=== PATIENT | female | born 1980 | race Caucasian/White ===

== ENCOUNTER 2017-12-28 08:10 | Inpatient (IN) | payer MEDICAID, OTHER ==
[~2017-12-28] VITALS: Ht 157.5 cm; Wt 54.6 kg
[~2017-12-28 08:10] MED LIST: ASEN10TA8 SL
[2017-12-28 10:37] LABS: BASOPHILS % (AUTO) 0.7 % (0.0-2.0); EOSINOPHILS % (AUTO) 2.4 % (1.0-6.0); HEMATOCRIT 37.7 % (36-46); HEMOGLOBIN 13.2 g/dL (12.0-16.0); LYMPHOCYTES # (AUTO) 1.4 K/uL (1.0-4.8); LYMPHOCYTES % (AUTO) 36.2 % (22.0-44.0); MEAN CORPUSCULAR HEMOGLOBIN 32.4 pg (26.0-34.0); MEAN CORPUSCULAR VOLUME 92 fL (80-100); MONOCYTES # (AUTO) 0.4 K/uL (0.1-1.0); MONOCYTES % (AUTO) 11.2 % (2.0-9.0); NEUTROPHILS % (AUTO) 49.5 % (40.0-70.0); PLATELET COUNT (AUTO) 192 K/uL (150-450); RED BLOOD CELL COUNT(AUTO) 4.08 MIL/uL (4.00-5.20); RED CELL DISTRIBUTION WIDTH 13.9 % (11.5-14.5)
[2017-12-28 10:52] LABS: ALANINE AMINOTRANSFERASE 69 U/L (12-78); ALBUMIN 3.8 g/dL (3.4-5.0); ALKALINE PHOSPHATASE 77 U/L (46-116); ASPARTATE AMINOTRANSFERASE 42 U/L (15-37); BILIRUBIN,TOTAL 0.6 mg/dL (0.1-1.0); CALCIUM, TOTAL 8.3 mg/dL (8.8-10.5); CARBON DIOXIDE 26 mmol/L (22-29); CREATININE 0.73 mg/dL (0.60-1.30); GLOMERULAR FILTR. RATE CALC > 60 mL/min (>60); GLUCOSE,RANDOM 87 mg/dL (70-110); TOTAL PROTEIN, SERUM 6.8 g/dL (6.4-8.2); UREA NITROGEN, BLOOD 15 mg/dL (7-18)
[2017-12-28 10:56] LABS: ANION GAP 11 mmol/L (8-16); CHLORIDE 102 mmol/L (98-107); POTASSIUM 3.1 mmol/L (3.5-5.1); SODIUM SERUM 139 mmol/L (136-145)
[2017-12-28] MEDS ORDERED: POTASSIUM CHLORIDE 20 MEQ ER TABLET PO ONE (15:30)
[2017-12-28 16:38] LABS: CHOL/HDL RATIO 2.2 (3.9-5.7); CHOLESTEROL 139 mg/dL (131-200); HDL CHOLESTEROL 62 mg/dL (40-60); LDL CHOL (CALC.) 69 mg/dL (0-130); TRIGLYCERIDES 40 mg/dL (15-150)
[2017-12-28 17:09] LABS: AMPHET/METH SCREEN,URINE NEGATIVE (NEGATIVE); BARBITURATE SCREEN, URINE NEGATIVE (NEGATIVE); BENZODIAZEPINES SCREEN,URINE NEGATIVE (NEGATIVE); CANNABINOID SCREEN,URINE NEGATIVE (NEGATIVE); COCAINE SCREEN,URINE NEGATIVE (NEGATIVE); METHADONE SCREEN, URINE NEGATIVE (NEGATIVE); OPIATE SCREEN,URINE NEGATIVE (NEGATIVE)
[2017-12-28 17:10] LABS: PHENCYCLIDINE SCREEN,URINE NEGATIVE (NEGATIVE)
[2017-12-28 18:10] VITALS: BP 95/56
[2017-12-29 08:41] VITALS: BP 94/66
[2017-12-29 17:05] VITALS: BP 95/58
[2017-12-29] MEDS ORDERED: IBUPROFEN 400 MG TABLET PO PRN (21:30)
[2017-12-29] MEDS ORDERED: ACETAMINOPHEN 325 MG TABLET PO PRN (21:30)
[2017-12-29] MEDS ORDERED: POTASSIUM CHLORIDE 10 MEQ ER TABLET PO ONE (21:30)
[2017-12-30 05:51] VITALS: BP 144/58
[2017-12-30 09:09] VITALS: BP 116/53
[2017-12-30] MEDS: ASENAPINE 10 MG SUBLINGUAL TABLET SL SCH (09:15)
[2017-12-30 16:15] VITALS: BP 104/61
[2017-12-31 03:00] VITALS: BP 116/85
[2017-12-31] MEDS: ASENAPINE 10 MG SUBLINGUAL TABLET SL SCH (08:28)
[2017-12-31 09:00] VITALS: BP 129/78
[2017-12-31 17:00] VITALS: BP 98/58
[2018-01-01 01:00] VITALS: BP 120/66
[2018-01-01 09:00] VITALS: BP 94/45
[2018-01-01] MEDS: ASENAPINE 10 MG SUBLINGUAL TABLET SL SCH (09:51)
[2018-01-01 21:27] VITALS: BP 117/65
[2018-01-02 01:23] VITALS: BP 95/53
[2018-01-02 09:15] VITALS: BP 114/60
[2018-01-02] MEDS: ASENAPINE 10 MG SUBLINGUAL TABLET SL SCH ×2 (11:01→18:00)
[2018-01-02] MEDS: LORazepam 2 MG TABLET PO PRN (11:01)
[2018-01-03 08:00] VITALS: BP 109/62
[2018-01-03] MEDS: LORazepam 2 MG TABLET PO PRN (09:51)
[2018-01-03] MEDS: ASENAPINE 10 MG SUBLINGUAL TABLET SL SCH ×3 (09:51→17:00)
[2018-01-03 18:12] VITALS: BP 109/60
[2018-01-04 08:15] VITALS: BP 99/78
[2018-01-04] MEDS: ASENAPINE 10 MG SUBLINGUAL TABLET SL SCH ×2 (09:03→16:46)
[2018-01-04] MEDS: LORazepam 2 MG TABLET PO PRN (10:29)
[2018-01-04 17:35] VITALS: BP 117/73
[2018-01-05] MEDS: ASENAPINE 10 MG SUBLINGUAL TABLET SL SCH ×2 (09:00→17:00)
[2018-01-05 13:02] VITALS: BP 105/63
[2018-01-06] MEDS: ASENAPINE 10 MG SUBLINGUAL TABLET SL SCH ×2 (09:00→18:00)
[2018-01-06 09:36] VITALS: BP 93/59
[2018-01-06 16:35] VITALS: BP 105/54
[2018-01-07] MEDS: ASENAPINE 10 MG SUBLINGUAL TABLET SL SCH ×2 (09:24→09:28)
[2018-01-07] MEDS: VALPROIC ACID 250 MG/5 ML SYRUP UDCUP PO SCH ×2 (11:30→17:36)
[2018-01-07] MEDS: RisperiDONE CONC 2 MG/2 ML SOLUTION ORAL.SYG PO SCH ×2 (11:30→17:36)
[2018-01-07 17:00] VITALS: BP 98/59
[2018-01-07] MEDS: LORazepam 2 MG TABLET PO PRN (20:00)
[2018-01-07] MEDS: OLANZapine 5 MG RAPDIS TABLET PO PRN (20:00)
[2018-01-07] MEDS: ZOLPIDEM TARTRATE 10 MG TABLET PO PRN (21:15)
[2018-01-08] MEDS: RisperiDONE CONC 2 MG/2 ML SOLUTION ORAL.SYG PO SCH ×2 (10:38→17:45)
[2018-01-08] MEDS: VALPROIC ACID 250 MG/5 ML SYRUP UDCUP PO SCH ×2 (10:39→17:45)
[2018-01-09] MEDS: VALPROIC ACID 250 MG/5 ML SYRUP UDCUP PO SCH ×2 (08:30→16:45)
[2018-01-09] MEDS: RisperiDONE CONC 2 MG/2 ML SOLUTION ORAL.SYG PO SCH ×2 (08:30→16:45)
[2018-01-09 09:00] VITALS: BP 106/62
[2018-01-09] MEDS: OLANZapine 5 MG RAPDIS TABLET PO PRN (15:45)
[2018-01-09] MEDS: LORazepam 2 MG TABLET PO PRN (15:46)
[2018-01-10 09:00] VITALS: BP 99/53
[2018-01-10] MEDS: RisperiDONE CONC 2 MG/2 ML SOLUTION ORAL.SYG PO SCH ×2 (09:20→17:38)
[2018-01-10] MEDS: VALPROIC ACID 250 MG/5 ML SYRUP UDCUP PO SCH ×2 (09:20→17:37)
[2018-01-10] MEDS: OLANZapine 5 MG RAPDIS TABLET PO PRN (17:38)
[2018-01-10] MEDS: LORazepam 2 MG TABLET PO PRN (17:38)
[2018-01-11] MEDS: OLANZapine 5 MG RAPDIS TABLET PO PRN ×2 (02:39→16:09)
[2018-01-11] MEDS: LORazepam 2 MG TABLET PO PRN ×2 (02:39→16:09)
[2018-01-11 08:30] VITALS: BP 90/58
[2018-01-11] MEDS: RisperiDONE CONC 2 MG/2 ML SOLUTION ORAL.SYG PO SCH ×2 (10:46→17:39)
[2018-01-11] MEDS: VALPROIC ACID 250 MG/5 ML SYRUP UDCUP PO SCH ×2 (10:47→17:39)
[2018-01-11 19:46] VITALS: BP 121/77
[2018-01-12 05:50] VITALS: BP 111/56
[2018-01-12 09:00] VITALS: BP 98/60
[2018-01-12] MEDS: VALPROIC ACID 250 MG/5 ML SYRUP UDCUP PO SCH ×2 (09:39→17:00)
[2018-01-12] MEDS: RisperiDONE CONC 2 MG/2 ML SOLUTION ORAL.SYG PO SCH ×2 (09:39→17:00)
[2018-01-12 17:00] VITALS: BP 104/70
[2018-01-12] MEDS: OLANZapine 5 MG RAPDIS TABLET PO PRN (19:27)
[2018-01-12] MEDS: LORazepam 2 MG TABLET PO PRN (19:27)
[2018-01-13 08:00] VITALS: BP 110/62
[2018-01-13] MEDS: VALPROIC ACID 250 MG/5 ML SYRUP UDCUP PO SCH ×2 (10:32→16:21)
[2018-01-13] MEDS: RisperiDONE CONC 2 MG/2 ML SOLUTION ORAL.SYG PO SCH ×2 (10:32→16:21)
[2018-01-13] MEDS: LORazepam 2 MG TABLET PO PRN (10:43)
[2018-01-13 17:08] VITALS: BP 95/68
[2018-01-14 05:55] VITALS: BP 99/65
[2018-01-14] MEDS: VALPROIC ACID 250 MG/5 ML SYRUP UDCUP PO SCH ×2 (08:11→17:14)
[2018-01-14] MEDS: RisperiDONE CONC 2 MG/2 ML SOLUTION ORAL.SYG PO SCH ×2 (08:11→17:14)
[2018-01-14 08:30] VITALS: BP 126/78
[2018-01-14] MEDS: LORazepam 2 MG TABLET PO PRN ×2 (11:27→17:40)
[2018-01-14 17:35] VITALS: BP 122/74
[2018-01-15] MEDS: VALPROIC ACID 250 MG/5 ML SYRUP UDCUP PO SCH ×2 (09:17→16:52)
[2018-01-15] MEDS: RisperiDONE CONC 2 MG/2 ML SOLUTION ORAL.SYG PO SCH ×2 (09:17→16:52)
[2018-01-15 09:38] VITALS: BP 96/73
[2018-01-15] MEDS: LORazepam 2 MG TABLET PO PRN ×2 (10:15→17:41)
[2018-01-15] MEDS: OLANZapine 5 MG RAPDIS TABLET PO PRN (10:15)
[2018-01-15 18:37] VITALS: BP 112/68
[2018-01-16] MEDS: VALPROIC ACID 250 MG/5 ML SYRUP UDCUP PO SCH ×2 (08:54→16:55)
[2018-01-16] MEDS: RisperiDONE CONC 2 MG/2 ML SOLUTION ORAL.SYG PO SCH ×2 (08:55→16:55)
[2018-01-16 09:00] VITALS: BP 100/62
[2018-01-16] MEDS: LORazepam 2 MG TABLET PO PRN ×2 (09:02→18:39)
[2018-01-16 17:00] VITALS: BP 137/70
[2018-01-17] MEDS: VALPROIC ACID 250 MG/5 ML SYRUP UDCUP PO SCH ×2 (08:57→17:58)
[2018-01-17] MEDS: RisperiDONE CONC 2 MG/2 ML SOLUTION ORAL.SYG PO SCH ×2 (08:57→17:58)
[2018-01-17 09:18] VITALS: BP 100/68
[2018-01-17] MEDS: LORazepam 2 MG TABLET PO PRN ×2 (09:22→18:32)
[2018-01-17 22:28] VITALS: BP 79/48
[2018-01-18] MEDS: VALPROIC ACID 250 MG/5 ML SYRUP UDCUP PO SCH (08:41)
[2018-01-18] MEDS: RisperiDONE CONC 2 MG/2 ML SOLUTION ORAL.SYG PO SCH (08:41)
[2018-01-18] MEDS: LORazepam 2 MG TABLET PO PRN ×2 (09:35→16:38)
[2018-01-18 09:54] VITALS: BP 101/49
[2018-01-18 17:53] VITALS: BP 102/64
[2018-01-18] MEDS: DIVALPROEX SODIUM 500 MG DR TABLET PO SCH (20:10)
[2018-01-18] MEDS: RisperiDONE 3 MG TABLET PO SCH (20:11)
[2018-01-19] MEDS: RisperiDONE 3 MG TABLET PO SCH ×2 (09:17→20:02)
[2018-01-19] MEDS: DIVALPROEX SODIUM 500 MG DR TABLET PO SCH ×2 (09:17→20:02)
[2018-01-19] MEDS: LORazepam 2 MG TABLET PO PRN ×2 (09:20→20:04)
[2018-01-19 10:20] VITALS: BP 107/50
[2018-01-19 17:45] VITALS: BP 101/58
[2018-01-20] MEDS: RisperiDONE 3 MG TABLET PO SCH ×2 (09:31→20:33)
[2018-01-20] MEDS: DIVALPROEX SODIUM 500 MG DR TABLET PO SCH ×2 (09:31→20:34)
[2018-01-20] MEDS: LORazepam 2 MG TABLET PO PRN ×3 (09:35→23:45)
[2018-01-20 10:09] VITALS: BP 93/52
[2018-01-20 22:15] VITALS: BP 96/55
[2018-01-20] MEDS: ZOLPIDEM TARTRATE 10 MG TABLET PO PRN (23:39)
[2018-01-21 00:10] VITALS: BP 104/85
[2018-01-21] MEDS: OLANZapine 5 MG RAPDIS TABLET PO PRN ×2 (00:18→23:51)
[2018-01-21 08:55] VITALS: BP 137/62
[2018-01-21] MEDS: RisperiDONE 3 MG TABLET PO SCH ×2 (09:07→20:12)
[2018-01-21] MEDS: DIVALPROEX SODIUM 500 MG DR TABLET PO SCH ×2 (09:07→20:12)
[2018-01-21 17:03] VITALS: BP 131/80
[2018-01-21] MEDS: LORazepam 2 MG TABLET PO PRN (23:42)
[2018-01-22 08:41] VITALS: BP 93/54
[2018-01-22] MEDS: DIVALPROEX SODIUM 500 MG DR TABLET PO SCH ×2 (10:07→20:08)
[2018-01-22] MEDS: RisperiDONE 3 MG TABLET PO SCH ×2 (10:07→20:08)
[2018-01-22] MEDS: LORazepam 2 MG TABLET PO PRN (20:58)
[2018-01-22 21:09] VITALS: BP 135/78
[2018-01-23] MEDS: LORazepam 2 MG TABLET PO PRN (06:20)
[2018-01-23 09:26] VITALS: BP 91/59
[2018-01-23] MEDS: RisperiDONE 3 MG TABLET PO SCH ×2 (10:50→20:49)
[2018-01-23] MEDS: DIVALPROEX SODIUM 500 MG DR TABLET PO SCH ×2 (10:50→20:49)
[2018-01-23] MEDS: OLANZapine 5 MG RAPDIS TABLET PO PRN (16:02)
[2018-01-23 19:55] VITALS: BP 90/53
[2018-01-24 08:43] VITALS: BP 95/55
[2018-01-24 09:53] VITALS: BP 105/74
[2018-01-24] MEDS: RisperiDONE 3 MG TABLET PO SCH ×2 (09:56→20:28)
[2018-01-24] MEDS: DIVALPROEX SODIUM 500 MG DR TABLET PO SCH ×2 (09:56→20:28)
[2018-01-24] MEDS: LORazepam 2 MG TABLET PO PRN ×2 (09:56→20:28)
[2018-01-24 16:47] VITALS: BP 110/68
[2018-01-25 08:05] VITALS: BP 103/66
[2018-01-25] MEDS: DIVALPROEX SODIUM 500 MG DR TABLET PO SCH ×2 (08:27→20:11)
[2018-01-25] MEDS: LORazepam 2 MG TABLET PO PRN ×2 (08:27→18:01)
[2018-01-25] MEDS: RisperiDONE 3 MG TABLET PO SCH ×2 (08:27→20:11)
[2018-01-25 18:44] VITALS: BP 110/69
[2018-01-25] MEDS: ZOLPIDEM TARTRATE 10 MG TABLET PO PRN (20:36)
[2018-01-26 01:00] VITALS: BP 89/66
[2018-01-26] MEDS: LORazepam 2 MG TABLET PO PRN ×3 (01:49→22:58)
[2018-01-26] MEDS: DIVALPROEX SODIUM 500 MG DR TABLET PO SCH ×2 (08:08→20:23)
[2018-01-26] MEDS: RisperiDONE 3 MG TABLET PO SCH ×2 (08:08→20:23)
[2018-01-26 09:22] VITALS: BP 92/66
[2018-01-27 00:20] VITALS: BP 103/64
[2018-01-27] MEDS: OLANZapine 5 MG RAPDIS TABLET PO PRN (00:21)
[2018-01-27 08:42] VITALS: BP 123/87
[2018-01-27] MEDS: RisperiDONE 3 MG TABLET PO SCH ×2 (10:58→21:33)
[2018-01-27] MEDS: DIVALPROEX SODIUM 500 MG DR TABLET PO SCH ×2 (10:59→21:33)
[2018-01-27 16:45] VITALS: BP 118/70
[2018-01-27] MEDS: LORazepam 2 MG TABLET PO PRN (22:23)
[2018-01-28] MEDS: RisperiDONE 3 MG TABLET PO SCH ×2 (10:19→21:47)
[2018-01-28] MEDS: DIVALPROEX SODIUM 500 MG DR TABLET PO SCH ×2 (10:19→21:47)
[2018-01-28 10:48] VITALS: BP 101/54
[2018-01-28] MEDS: LORazepam 2 MG TABLET PO PRN ×2 (10:49→21:47)
[2018-01-28] MEDS: OLANZapine 5 MG RAPDIS TABLET PO PRN (10:50)
[2018-01-28 16:30] VITALS: BP 100/57
[2018-01-29 00:45] VITALS: BP 95/68
[2018-01-29] MEDS: RisperiDONE 3 MG TABLET PO SCH ×2 (09:13→20:22)
[2018-01-29] MEDS: DIVALPROEX SODIUM 500 MG DR TABLET PO SCH ×2 (09:14→20:22)
[2018-01-29 09:15] VITALS: BP 122/53
[2018-01-29] MEDS: LORazepam 2 MG TABLET PO PRN (09:38)
[2018-01-29] MEDS: OLANZapine 5 MG RAPDIS TABLET PO PRN (09:38)
[2018-01-29 10:23] LABS: APPEARANCE,URINE CLEAR (CLEAR); BILIRUBIN,URINE NEGATIVE (NEGATIVE); GLUCOSE, URINE (UA) NEGATIVE (NEGATIVE); KETONES,URINE NEGATIVE (NEGATIVE); LEUKOCYTE ESTERASE ,URINE NEGATIVE (NEGATIVE); NITRATE,URINE NEGATIVE (NEGATIVE); OCCULT BLOOD,URINE NEGATIVE (NEGATIVE); PROTEIN,URINE NEGATIVE (NEGATIVE); UROBILINOGEN,URINE 0.2 mg/dL (<=1.0)
[2018-01-29 19:47] VITALS: BP 120/74
[2018-01-30 01:06] VITALS: BP 101/61
[2018-01-30 08:05] VITALS: BP 109/76
[2018-01-30] MEDS: DIVALPROEX SODIUM 500 MG DR TABLET PO SCH (08:40)
[2018-01-30] MEDS: OLANZapine 5 MG RAPDIS TABLET PO PRN (08:40)
[2018-01-30] MEDS: LORazepam 2 MG TABLET PO PRN ×2 (08:40→20:17)
[2018-01-30] MEDS: RisperiDONE 3 MG TABLET PO SCH (08:40)
[2018-01-30 16:45] VITALS: BP 120/80
[2018-01-30] MEDS: RisperiDONE CONC 3 MG/3 ML SOLUTION ORAL.SYG PO SCH (20:19)
[2018-01-30] MEDS: VALPROIC ACID 250 MG/5 ML SYRUP UDCUP PO SCH (20:19)
[2018-01-31] MEDS: RisperiDONE CONC 3 MG/3 ML SOLUTION ORAL.SYG PO SCH ×2 (08:27→20:48)
[2018-01-31] MEDS: VALPROIC ACID 250 MG/5 ML SYRUP UDCUP PO SCH ×2 (08:27→20:48)
[2018-01-31] MEDS: LORazepam 2 MG TABLET PO PRN ×2 (08:38→21:03)
[2018-01-31 10:21] VITALS: BP 105/68
[2018-01-31 22:11] VITALS: BP 86/50
[2018-02-01] MEDS: RisperiDONE CONC 3 MG/3 ML SOLUTION ORAL.SYG PO SCH ×2 (08:44→21:06)
[2018-02-01] MEDS: LORazepam 2 MG TABLET PO PRN (08:45)
[2018-02-01] MEDS: VALPROIC ACID 250 MG/5 ML SYRUP UDCUP PO SCH ×2 (08:45→21:05)
[2018-02-01] MEDS: OLANZapine 5 MG RAPDIS TABLET PO PRN (08:45)
[2018-02-01 10:35] VITALS: BP 144/91
[2018-02-01 18:36] VITALS: BP 102/70
[2018-02-02 04:32] VITALS: BP 102/62
[2018-02-02] MEDS: RisperiDONE CONC 3 MG/3 ML SOLUTION ORAL.SYG PO SCH ×2 (07:46→20:01)
[2018-02-02] MEDS: LORazepam 2 MG TABLET PO PRN (07:46)
[2018-02-02] MEDS: OLANZapine 5 MG RAPDIS TABLET PO PRN (07:46)
[2018-02-02] MEDS: VALPROIC ACID 250 MG/5 ML SYRUP UDCUP PO SCH ×2 (07:46→20:02)
[2018-02-02 10:26] VITALS: BP 92/59
[2018-02-02 18:27] VITALS: BP 90/51
[2018-02-03 05:51] VITALS: BP 110/84
[2018-02-03 08:05] VITALS: BP 110/74
[2018-02-03] MEDS: VALPROIC ACID 250 MG/5 ML SYRUP UDCUP PO SCH ×2 (08:14→20:45)
[2018-02-03] MEDS: OLANZapine 5 MG RAPDIS TABLET PO PRN (08:14)
[2018-02-03] MEDS: LORazepam 2 MG TABLET PO PRN (08:14)
[2018-02-03] MEDS: RisperiDONE CONC 3 MG/3 ML SOLUTION ORAL.SYG PO SCH ×2 (08:16→20:46)
[2018-02-03 20:06] VITALS: BP 100/76
[2018-02-04 02:56] VITALS: BP 116/70
[2018-02-04] MEDS: VALPROIC ACID 250 MG/5 ML SYRUP UDCUP PO SCH ×2 (09:22→21:50)
[2018-02-04] MEDS: RisperiDONE CONC 3 MG/3 ML SOLUTION ORAL.SYG PO SCH ×2 (09:22→21:50)
[2018-02-04] MEDS: LORazepam 2 MG TABLET PO PRN ×2 (09:25→22:35)
[2018-02-04 12:27] VITALS: BP 104/62
[2018-02-04 16:30] VITALS: BP 110/58
[2018-02-05] MEDS: LORazepam 2 MG TABLET PO PRN ×2 (08:21→22:15)
[2018-02-05] MEDS: RisperiDONE CONC 3 MG/3 ML SOLUTION ORAL.SYG PO SCH ×2 (08:21→22:06)
[2018-02-05] MEDS: VALPROIC ACID 250 MG/5 ML SYRUP UDCUP PO SCH ×2 (08:21→22:08)
[2018-02-05 08:43] VITALS: BP 99/70
[2018-02-05 18:00] VITALS: BP 106/58
[2018-02-06 03:38] VITALS: BP 99/58
[2018-02-06] MEDS: VALPROIC ACID 250 MG/5 ML SYRUP UDCUP PO SCH ×2 (08:20→20:38)
[2018-02-06] MEDS: RisperiDONE CONC 3 MG/3 ML SOLUTION ORAL.SYG PO SCH ×2 (08:20→20:38)
[2018-02-06] MEDS: LORazepam 2 MG TABLET PO PRN ×2 (08:22→21:47)
[2018-02-06 09:13] VITALS: BP 102/68
[2018-02-06 17:47] VITALS: BP 105/55
[2018-02-07 08:54] VITALS: BP 108/55
[2018-02-07] MEDS: LORazepam 2 MG TABLET PO PRN (09:21)
[2018-02-07] MEDS: RisperiDONE CONC 3 MG/3 ML SOLUTION ORAL.SYG PO SCH (09:23)
[2018-02-07] MEDS: VALPROIC ACID 250 MG/5 ML SYRUP UDCUP PO SCH (09:23)
[2018-02-07] MEDS: OLANZapine 5 MG RAPDIS TABLET PO PRN (10:10)
[2018-02-07] MEDS ORDERED: RISP3TAB13 PO ×2 (16:16→16:23)
[2018-02-07] MEDS ORDERED: VALP250C PO ×2 (16:19→16:24)
== END 2018-02-07 17:00 | disposition home or self-care (01) | DRG 750 ==
LOC: EMS 08:11 → 3EI 17:18
PROVIDERS: ATTEND Psychiatry & Neurology Child & Adolescent Psychiatry
DX: F20.0 Paranoid schizophrenia (principal); Z91.14 Patient's other noncompliance with medication regimen; E87.6 Hypokalemia; D72.819 Decreased white blood cell count, unspecified; G47.00 Insomnia, unspecified; Z59.0 Homelessness
CPT/HCPCS: 87081; 99285; G0480

== ENCOUNTER 2018-07-01 01:30 | Inpatient (IN) | payer MEDICAID, OTHER ==
[~2018-07-01] VITALS: Ht 157.5 cm; Wt 49.9 kg
[~2018-07-01 01:30] MED LIST changes: -ASEN10TA8 SL; +RISP3TAB13 PO; +VALP250C PO
[2018-07-01] MEDS ORDERED: LORazepam 2 MG/ML VIAL IM ONE (03:30)
[2018-07-01] MEDS ORDERED: FluPHENAZine HCL 2.5 MG/ML INJ IM ONE (03:30)
[2018-07-01] MEDS ORDERED: DiphenhydrAMINE HCL 50 MG/ML VIAL IM ONE (03:30)
[2018-07-01 05:48] LABS: BASOPHILS % (AUTO) 0.4 % (0.0-2.0); EOSINOPHILS % (AUTO) 0.1 % (1.0-6.0); HEMATOCRIT 35.2 % (36-46); HEMOGLOBIN 12.2 g/dL (12.0-16.0); LYMPHOCYTES # (AUTO) 0.9 K/uL (1.0-4.8); LYMPHOCYTES % (AUTO) 13.8 % (22.0-44.0); MEAN CORPUSCULAR HEMOGLOBIN 31.6 pg (26.0-34.0); MEAN CORPUSCULAR HGB CONC 34.7 G/dL (31.0-37.0); MEAN CORPUSCULAR VOLUME 91 fL (80-100); MONOCYTES # (AUTO) 0.4 K/uL (0.1-1.0); MONOCYTES % (AUTO) 6.1 % (2.0-9.0); NEUTROPHILS # (AUTO) 5.1 K/uL (1.8-7.7); NEUTROPHILS % (AUTO) 79.6 % (40.0-70.0); PLATELET COUNT (AUTO) 162 K/uL (150-450); RED BLOOD CELL COUNT(AUTO) 3.87 MIL/uL (4.00-5.20); RED CELL DISTRIBUTION WIDTH 13.5 % (11.5-14.5)
[2018-07-01 06:16] LABS: ALANINE AMINOTRANSFERASE 29 U/L (12-78); ALBUMIN 3.6 g/dL (3.4-5.0); ALKALINE PHOSPHATASE 48 U/L (46-116); ANION GAP 6 mmol/L (8-16); ASPARTATE AMINOTRANSFERASE 22 U/L (15-37); BILIRUBIN,TOTAL 0.8 mg/dL (0.1-1.0); CALCIUM, TOTAL 8.8 mg/dL (8.8-10.5); CARBON DIOXIDE 28 mmol/L (22-29); CHLORIDE 102 mmol/L (98-107); CREATININE 0.83 mg/dL (0.60-1.30); GLOMERULAR FILTR. RATE CALC > 60 mL/min (>60); GLUCOSE,RANDOM 215 mg/dL (70-110); SODIUM SERUM 136 mmol/L (136-145); TOTAL PROTEIN, SERUM 6.6 g/dL (6.4-8.2); UREA NITROGEN, BLOOD 19 mg/dL (7-18)
[2018-07-01 07:02] LABS: HCG,QUANTITATIVE < 1 mIU/mL (0-6)
[2018-07-01] MEDS ORDERED: OLANZapine 5 MG RAPDIS TABLET PO PRN (09:45)
[2018-07-01] MEDS ORDERED: ZOLPIDEM TARTRATE 10 MG TABLET PO PRN (09:45)
[2018-07-01] MEDS ORDERED: HydrOXYzine PAMOATE 50 MG CAPSULE PO PRN (11:30)
[2018-07-01] MEDS ORDERED: MAG HYDROX/AL HYDROX/SIMETH ES 30 ML SUSPENSION UDCUP PO PRN (11:30)
[2018-07-01] MEDS ORDERED: LOPERAMIDE HCL 2 MG CAPSULE PO PRN (11:30)
[2018-07-01] MEDS ORDERED: ACETAMINOPHEN 325 MG TABLET PO PRN (11:30)
[2018-07-01] MEDS ORDERED: MAGNESIUM HYDROXIDE SUSPENSION 30 ML UDCUP PO PRN (11:30)
[2018-07-01] MEDS ORDERED: TUBERCULIN, PURIFIED PROTEIN DERIVATIVE 5 TU/0.1 ML SYG ID ONE (11:30)
[2018-07-01] MEDS ORDERED: GuaiFENesin/D-METHORPHAN [SUGAR-FREE] 200-20MG/10 ML SYRUP UDCUP PO PRN (11:30)
[2018-07-01] MEDS ORDERED: PROMETHAZINE HCL 25 MG TABLET PO PRN (11:30)
[2018-07-01 13:43] LABS: GLUCOSE,POINT OF CARE 139 MG/DL (70-110)
[2018-07-01 16:57] VITALS: BP 110/64
[2018-07-01] MEDS: THIAMINE HCL 100 MG TABLET PO SCH (17:00)
[2018-07-01] MEDS: OLANZapine 5 MG RAPDIS TABLET PO SCH (21:00)
[2018-07-01] MEDS: VALPROIC ACID 250 MG/5 ML SYRUP UDCUP PO SCH (21:00)
[2018-07-02 06:45] VITALS: BP 115/70
[2018-07-02] MEDS: LORazepam 2 MG TABLET PO PRN (06:50)
[2018-07-02 07:29] LABS: GLUCOMETER DEV NAME(LOC) BV3S 2; GLUCOSE,POINT OF CARE 97 MG/DL (70-110)
[2018-07-02 08:14] VITALS: BP 122/78
[2018-07-02] MEDS: FOLIC ACID 1 MG TABLET PO SCH (08:50)
[2018-07-02] MEDS: MULTIVITAMINS WITH MINERALS, THERAPEUTIC TABLET PO SCH (08:50)
[2018-07-02] MEDS: NALTREXONE HCL 50 MG TABLET PO SCH (08:50)
[2018-07-02] MEDS: THIAMINE HCL 100 MG TABLET PO SCH ×2 (08:50→17:09)
[2018-07-02 17:45] VITALS: BP 75/44
[2018-07-02] MEDS: VALPROIC ACID 250 MG/5 ML SYRUP UDCUP PO SCH (20:42)
[2018-07-02] MEDS: OLANZapine 5 MG RAPDIS TABLET PO SCH (20:42)
[2018-07-03] MEDS: THIAMINE HCL 100 MG TABLET PO SCH ×2 (08:59→16:23)
[2018-07-03] MEDS: NALTREXONE HCL 50 MG TABLET PO SCH (08:59)
[2018-07-03] MEDS: FOLIC ACID 1 MG TABLET PO SCH (08:59)
[2018-07-03] MEDS: MULTIVITAMINS WITH MINERALS, THERAPEUTIC TABLET PO SCH (09:00)
[2018-07-03 16:03] VITALS: BP 100/60
[2018-07-03] MEDS: VALPROIC ACID 250 MG/5 ML SYRUP UDCUP PO SCH (20:38)
[2018-07-03] MEDS: OLANZapine 10 MG RAPDIS TABLET PO SCH (20:39)
[2018-07-04 01:11] VITALS: BP 110/66
[2018-07-04] MEDS: NALTREXONE HCL 50 MG TABLET PO SCH (08:26)
[2018-07-04] MEDS: MULTIVITAMINS WITH MINERALS, THERAPEUTIC TABLET PO SCH (08:27)
[2018-07-04] MEDS: THIAMINE HCL 100 MG TABLET PO SCH ×2 (08:27→16:42)
[2018-07-04] MEDS: LORazepam 2 MG TABLET PO PRN (08:28)
[2018-07-04] MEDS: FOLIC ACID 1 MG TABLET PO SCH (08:29)
[2018-07-04 16:40] VITALS: BP 100/63
[2018-07-04] MEDS: VALPROIC ACID 250 MG/5 ML SYRUP UDCUP PO SCH (20:25)
[2018-07-04] MEDS: OLANZapine 10 MG RAPDIS TABLET PO SCH (20:25)
[2018-07-05] MEDS: NALTREXONE HCL 50 MG TABLET PO SCH (08:05)
[2018-07-05] MEDS: FOLIC ACID 1 MG TABLET PO SCH (08:05)
[2018-07-05] MEDS: MULTIVITAMINS WITH MINERALS, THERAPEUTIC TABLET PO SCH (08:05)
[2018-07-05] MEDS: LORazepam 2 MG TABLET PO PRN ×2 (08:05→16:10)
[2018-07-05] MEDS: THIAMINE HCL 100 MG TABLET PO SCH ×2 (08:05→16:11)
[2018-07-05] MEDS: OLANZapine 10 MG RAPDIS TABLET PO SCH (20:28)
[2018-07-05] MEDS: VALPROIC ACID 250 MG/5 ML SYRUP UDCUP PO SCH (20:28)
[2018-07-06 04:44] VITALS: BP 104/63
[2018-07-06] MEDS: LORazepam 2 MG TABLET PO PRN ×2 (08:40→16:24)
[2018-07-06] MEDS: NALTREXONE HCL 50 MG TABLET PO SCH (08:40)
[2018-07-06] MEDS: FOLIC ACID 1 MG TABLET PO SCH (08:40)
[2018-07-06] MEDS: MULTIVITAMINS WITH MINERALS, THERAPEUTIC TABLET PO SCH (08:41)
[2018-07-06] MEDS: THIAMINE HCL 100 MG TABLET PO SCH ×2 (08:41→16:24)
[2018-07-06] MEDS: VALPROIC ACID 250 MG/5 ML SYRUP UDCUP PO SCH (20:15)
[2018-07-06] MEDS: OLANZapine 10 MG RAPDIS TABLET PO SCH (20:15)
[2018-07-07] MEDS: LORazepam 2 MG TABLET PO PRN (08:16)
[2018-07-07] MEDS: MULTIVITAMINS WITH MINERALS, THERAPEUTIC TABLET PO SCH (08:17)
[2018-07-07] MEDS: NALTREXONE HCL 50 MG TABLET PO SCH (08:17)
[2018-07-07] MEDS: THIAMINE HCL 100 MG TABLET PO SCH ×2 (08:17→17:35)
[2018-07-07] MEDS: FOLIC ACID 1 MG TABLET PO SCH (08:17)
[2018-07-07] MEDS: VALPROIC ACID 250 MG/5 ML SYRUP UDCUP PO SCH (21:16)
[2018-07-07] MEDS: OLANZapine 10 MG RAPDIS TABLET PO SCH (21:16)
[2018-07-08 05:39] VITALS: BP 106/66
[2018-07-08 08:16] VITALS: BP 122/74
[2018-07-08] MEDS: MULTIVITAMINS WITH MINERALS, THERAPEUTIC TABLET PO SCH (08:44)
[2018-07-08] MEDS: NALTREXONE HCL 50 MG TABLET PO SCH (08:44)
[2018-07-08] MEDS: THIAMINE HCL 100 MG TABLET PO SCH ×2 (08:44→17:05)
[2018-07-08] MEDS: FOLIC ACID 1 MG TABLET PO SCH (08:44)
[2018-07-08] MEDS: LORazepam 2 MG TABLET PO PRN (08:45)
[2018-07-08 16:38] VITALS: BP 100/64
[2018-07-08] MEDS: OLANZapine 10 MG RAPDIS TABLET PO SCH (20:31)
[2018-07-08] MEDS: VALPROIC ACID 250 MG/5 ML SYRUP UDCUP PO SCH (20:32)
[2018-07-09 05:02] VITALS: BP 100/70
[2018-07-09] MEDS: NALTREXONE HCL 50 MG TABLET PO SCH (08:43)
[2018-07-09] MEDS: FOLIC ACID 1 MG TABLET PO SCH (08:43)
[2018-07-09] MEDS: THIAMINE HCL 100 MG TABLET PO SCH ×2 (08:43→17:08)
[2018-07-09] MEDS: MULTIVITAMINS WITH MINERALS, THERAPEUTIC TABLET PO SCH (08:43)
[2018-07-09] MEDS ORDERED: VALPROIC ACID 250 MG/5 ML SYRUP UDCUP PO SCH (09:00)
[2018-07-09 17:32] VITALS: BP 109/92
[2018-07-09] MEDS: VALPROIC ACID 250 MG/5 ML SYRUP UDCUP PO SCH (20:16)
[2018-07-09] MEDS: OLANZapine 10 MG RAPDIS TABLET PO SCH (20:17)
[2018-07-10 06:59] VITALS: BP 115/80
[2018-07-10 08:08] VITALS: BP 100/62
[2018-07-10] MEDS: NALTREXONE HCL 50 MG TABLET PO SCH (09:02)
[2018-07-10] MEDS: FOLIC ACID 1 MG TABLET PO SCH (09:02)
[2018-07-10] MEDS: THIAMINE HCL 100 MG TABLET PO SCH ×2 (09:02→16:52)
[2018-07-10] MEDS: MULTIVITAMINS WITH MINERALS, THERAPEUTIC TABLET PO SCH (09:02)
[2018-07-10] MEDS: VALPROIC ACID 250 MG/5 ML SYRUP UDCUP PO SCH ×2 (09:02→20:45)
[2018-07-10] MEDS: LORazepam 2 MG TABLET PO PRN ×2 (09:03→16:53)
[2018-07-10 16:06] VITALS: BP 110/66
[2018-07-10] MEDS: OLANZapine 10 MG RAPDIS TABLET PO SCH (20:45)
[2018-07-11 02:20] VITALS: BP 145/74
[2018-07-11] MEDS: VALPROIC ACID 250 MG/5 ML SYRUP UDCUP PO SCH ×2 (08:55→20:22)
[2018-07-11] MEDS: FOLIC ACID 1 MG TABLET PO SCH (08:55)
[2018-07-11] MEDS: MULTIVITAMINS WITH MINERALS, THERAPEUTIC TABLET PO SCH (08:56)
[2018-07-11] MEDS: NALTREXONE HCL 50 MG TABLET PO SCH (08:56)
[2018-07-11] MEDS: THIAMINE HCL 100 MG TABLET PO SCH (08:57)
[2018-07-11] MEDS: LORazepam 2 MG TABLET PO PRN ×2 (08:58→17:13)
[2018-07-11] MEDS: OLANZapine 10 MG RAPDIS TABLET PO SCH (20:23)
[2018-07-12] MEDS: MULTIVITAMINS WITH MINERALS, THERAPEUTIC TABLET PO SCH (08:22)
[2018-07-12] MEDS: NALTREXONE HCL 50 MG TABLET PO SCH (08:22)
[2018-07-12] MEDS: VALPROIC ACID 250 MG/5 ML SYRUP UDCUP PO SCH ×2 (08:22→20:06)
[2018-07-12 08:34] VITALS: BP 120/74
[2018-07-12 16:08] VITALS: BP 100/64
[2018-07-12] MEDS: OLANZapine 10 MG RAPDIS TABLET PO SCH (20:07)
[2018-07-13 06:40] VITALS: BP 112/68
[2018-07-13] MEDS: NALTREXONE HCL 50 MG TABLET PO SCH (09:09)
[2018-07-13] MEDS: VALPROIC ACID 250 MG/5 ML SYRUP UDCUP PO SCH ×2 (09:09→21:00)
[2018-07-13] MEDS: MULTIVITAMINS WITH MINERALS, THERAPEUTIC TABLET PO SCH (09:09)
[2018-07-13 10:03] VITALS: BP 121/61
[2018-07-13] MEDS: LORazepam 2 MG TABLET PO PRN (10:05)
[2018-07-13 16:37] VITALS: BP 100/60
[2018-07-13] MEDS: OLANZapine 10 MG RAPDIS TABLET PO SCH (21:00)
[2018-07-14 06:03] VITALS: BP 126/84
[2018-07-14] MEDS: MULTIVITAMINS WITH MINERALS, THERAPEUTIC TABLET PO SCH (08:49)
[2018-07-14] MEDS: NALTREXONE HCL 50 MG TABLET PO SCH (08:49)
[2018-07-14] MEDS: VALPROIC ACID 250 MG/5 ML SYRUP UDCUP PO SCH ×2 (08:50→20:09)
[2018-07-14 12:58] VITALS: BP 90/60
[2018-07-14 16:21] VITALS: BP 109/72
[2018-07-14] MEDS: LORazepam 2 MG TABLET PO PRN (17:01)
[2018-07-14] MEDS: OLANZapine 10 MG RAPDIS TABLET PO SCH (20:08)
[2018-07-15 04:24] VITALS: BP 105/65
[2018-07-15] MEDS: NALTREXONE HCL 50 MG TABLET PO SCH (09:26)
[2018-07-15] MEDS: VALPROIC ACID 250 MG/5 ML SYRUP UDCUP PO SCH ×2 (09:26→20:16)
[2018-07-15] MEDS: MULTIVITAMINS WITH MINERALS, THERAPEUTIC TABLET PO SCH (09:26)
[2018-07-15 09:46] VITALS: BP 109/57
[2018-07-15] MEDS: LORazepam 2 MG TABLET PO PRN (09:47)
[2018-07-15 15:30] VITALS: BP 96/62
[2018-07-15] MEDS ORDERED: VALP250S23 PO (16:00)
[2018-07-15] MEDS ORDERED: NALT50TA PO (16:00)
[2018-07-15] MEDS ORDERED: OLAN10TA22 PO (16:00)
[2018-07-15 17:27] VITALS: BP 120/46
[2018-07-15] MEDS: OLANZapine 10 MG RAPDIS TABLET PO SCH (20:15)
[2018-07-16 06:22] VITALS: BP 117/68
[2018-07-16 08:31] VITALS: BP 98/54
[2018-07-16] MEDS: VALPROIC ACID 250 MG/5 ML SYRUP UDCUP PO SCH (08:36)
[2018-07-16] MEDS: MULTIVITAMINS WITH MINERALS, THERAPEUTIC TABLET PO SCH (08:36)
[2018-07-16] MEDS: NALTREXONE HCL 50 MG TABLET PO SCH (08:36)
== END 2018-07-16 13:30 | disposition home or self-care (01) | DRG 750 ==
LOC: EMS 01:32 → B3A 14:18
PROVIDERS: ADMIT Psychiatry & Neurology Psychiatry; ATTEND Psychiatry & Neurology Psychiatry
DX: F20.9 Schizophrenia, unspecified (principal); F39 Unspecified mood [affective] disorder; R45.851 Suicidal ideations; Z91.19 Patient's noncompliance with other medical treatment and regimen; Z28.21 Immunization not carried out because of patient refusal; Z59.0 Homelessness; Z88.8 Allergy status to other drugs, medicaments and biological substances
CPT/HCPCS: 90686; 96372; G0480; J1200; J2060; J3490